=== PATIENT | male | born 2000 | race American Indian/Alaskan Native ===

== ENCOUNTER 2020-06-25 21:54 | Inpatient (IN) | payer OTHER ==
[2020-06-25] MEDS ORDERED: diazePAM 10 MG/2 ML SYRINGE IV ONE (22:19)
[2020-06-25] MEDS ORDERED: LACTATED RINGERS 1,000 ML IV ONE (22:19)
--- NOTE | 2020-06-25 22:24 | Emergency Department Report ---
ED General Adult HPI - General Chief complaint: Arrhythmia/Palpitations Stated complaint: POSSIBLE OVERDOSE PUI?: No Time Seen by Provider: 06/25/20 22:13 Source: patient, RN notes reviewed Mode of arrival: Ambulatory Limitations: Other (The patient is currently intoxicated) - History of Present Illness Initial comments: The patient was evaluated in the emergency department for symptoms described in the history of present illness. He/she was evaluated in the context of the global COVID-19 pandemic, which necessitated consideration that the patient might be at risk for infection with the virus that causes COVID-19. Instit utional protocols and algorithms that pertain to the evaluation of patients at risk for COVID-19 are in a state of rapid change based on information released by regulatory bodies including the CDC and federal and state organizations. These policies and algorithms were followed during the patient's care in the emergency department. Please note that these policies, procedures and recommendations changed on a rapid basis. This is a 20-year-old gentleman. He is not known to myself previously. He presents to the ER with a complaint of feeling paranoid, and painless heart racing, after recreational consumption of marijuana, and "ice." He was dropped off by his cousin. He is here by himself. He denies physical pain. He feels like he is paranoid. He is not homicidal or suicidal. He does not want to harm herself or harm other people. He does not have access to guns or firearms. He states his symptoms are constant. He states this is never happened to him before. He denies loss of taste and smell and fever. -: This evening Severity scale (0 -10): 0 Consistency: constant Improves with: none Worsens with: none - Related Data Allergies Allergy/AdvReac Type Severity Reaction Status Date / Time No Known Allergies Allergy Unverified 06/25/20 21:58 ED Review of Systems ROS: Stated complaint: POSSIBLE OVERDOSE Other details as noted in HPI Constitutional: denies: fever Eyes: denies: eye discharge ENT: denies: epistaxis Respiratory: denies: cough Cardiovascular: palpitations Gastrointestinal: denies: abdominal pain Genitourinary: denies: dysuria Musculoskeletal: denies: myalgia Neurological: weakness Psychiatric: anxiety. denies: homicidal thoughts, suicidal thoughts ED Past Medical Hx - Past Medical History Previous Medical History?: No - Surgical History Past Surgical History?: No - Social History Smoking Status: Current Every Day Smoker Substance Use Type: Marijuana ED Physical Exam - General Limitations: No Limitations General appearance: appears intoxicated, anxious - Head Head exam: Present: atraumatic, normocephalic - Eye Eye exam: Present: normal appearance, PERRL, EOMI - ENT ENT exam: Present: normal exam, normal orophraynx, mucous membranes moist, normal external ear exam - Neck Neck exam: Present: normal inspection, full ROM. Absent: tenderness, meningismus - Respiratory Respiratory exam: Present: normal lung sounds bilaterally. Absent: respiratory distress, wheezes, rales, rhonchi, stridor - Cardiovascular Cardiovascular Exam: Present: normal rhythm, tachycardia, normal heart sounds. Absent: bradycardia, irregular rhythm, systolic murmur, diastolic murmur, rubs, gallop - GI/Abdominal GI/Abdominal exam: Present: soft. Absent: distended, tenderness, guarding, rebound, rigid, pulsatile mass - Rectal Rectal exam: Present: deferred - Extremities Exam Extremities exam: Present: normal inspection, full ROM, other (2+ pulses noted in the bilateral upper and lower extremities. There is no palpable cord. negative Homans sign. Muscular compartments are soft. The pelvis is stable.). Absent: pedal edema, calf tenderness - Back Exam Back exam: Present: normal inspection, full ROM. Absent: tenderness, CVA tenderness (R), CVA tenderness (L), paraspinal tenderness, vertebral tenderness - Neurological Exam Neurological exam: Present: alert, normal gait, other (No facial droop. Tongue midline. Extraocular movements intact bilaterally. Facial sensation intact to light touch in V1, V2, V3 distribution bilaterally. 5 and a 5 strength in 4 extremities. Sensation intact to light touch in 4 extremities.). Absent: motor sensory deficit - Psychiatric Psychiatric exam: Present: anxious. Absent: homicidal ideation, suicidal ideation - Skin Skin exam: Present: warm, dry, intact, normal color. Absent: rash ED Course Vital Signs 06/25/20 06/25/20 06/25/20 21:58 22:03 23:12 Temperature 97.9 F 97.9 F Pulse Rate 142 H 142 H 117 H Respiratory 24 24 28 H Rate Blood Pressure 92/44 Blood Pressure 92/44 [Left] O2 Sat by Pulse 99 100 97 Oximetry O2 Sat by Pulse Oximetry [ Digit-Finger] 06/25/20 06/25/20 06/25/20 23:15 23:31 23:31 Temperature Pulse Rate 124 H 122 H Respiratory 23 15 Rate Blood Pressure 140/79 Blood Pressure [Left] O2 Sat by Pulse 98 100 Oximetry O2 Sat by Pulse 99 Oximetry [ Digit-Finger] 06/25/20 06/26/20 06/26/20 23:45 00:01 00:03 Temperature Pulse Rate 111 H 107 H 105 H Respiratory 17 17 18 Rate Blood Pressure 133/89 127/85 138/80 Blood Pressure [Left] O2 Sat by Pulse 97 97 97 Oximetry O2 Sat by Pulse Oximetry [ Digit-Finger] 06/26/20 00:15 Temperature Pulse Rate 102 H Respiratory 16 Rate Blood Pressure 138/80 Blood Pressure [Left] O2 Sat by Pulse 97 Oximetry O2 Sat by Pulse Oximetry [ Digit-Finger] - Reevaluation(s) Reevaluation #1: 06/25/20 22:22 Differential diagnosis, including but not limited to: Sympathomimetic intoxication, dehydration, electrolyte derangement, marijuana use, methamphet amine use Assessment and plan: 20-year-old gentleman, who is anxious, but cooperative, not homicidal, not suicidal, likely complaining of polysubstance drug-induced hallucinations. Patient placed on hold status. Laboratory studies, fluids, Valium ordered. We would like to see this patient clinically sober, and discharge once sober. At this point in time, he is cooperative, not violent, not homicidal or suicidal, we will not place him on 1013 requested mental health evaluation at this time. I have discussed the plan of care with the patient, who verbalized understanding, and who is thus far amenable to this plan of care. Reevaluation #2: 06/25/20 23:26 Patient feeling improved, although somewhat anxious. Heart rate 120 bpm. Blood pressure 120/65. Laboratory studies have demonstrated evidence of hemoconcentration, hyponatremia, hypochloremia, and hypokalemia. Suspect that the patient is volume depleted, and I suspect hypovolemic hyponatremia. We will replete electrolytes, patient updated on plan of care. He is more calm now, less anxious, and amenable to admission/hospitalization. Hospital physician, Dr. Loc Nichols to admit Reevaluation #3: 06/26/20 00:36 Tachycardia improving. Blood pressure improving. Patient resting comfortably in stretcher at this time, and in no acute distress. - Pulse Oximetry Interpretation Digit-Finger Initial Pulse Oximetry Readin O2 Sat by Pulse Oximetry: 99 Actions Taken: none ED Medical Decision Making - Lab Data Result diagrams: 06/25/20 22:45 06/25/20 22:45 Vital Signs 06/25/20 06/25/20 21:58 22:03 Temperature 97.9 F 97.9 F Pulse Rate 142 H 142 H Respiratory 24 24 Rate Blood Pressure 92/44 Blood Pressure 92/44 [Left] O2 Sat by Pulse 99 100 Oximetry Vital Signs 06/25/20 06/25/20 06/25/20 21:58 22:03 23:23 Temperature 97.9 F 97.9 F Pulse Rate 142 H 142 H Respiratory 24 24 Rate Blood Pressure 92/44 Blood Pressure 92/44 [Left] O2 Sat by Pulse 99 100 Oximetry O2 Sat by Pulse 99 Oximetry [ Digit-Finger] Lab Results 06/25/20 06/25/20 06/25/20 Range/Units 22:45 22:45 22:45 Hgb 17.1 H (11.8-15.2) gm/dl Hct 50.4 H (35.5-45.6) % Plt Count 348 (140-440) K/mm3 Sodium 119 L* (137-145) mmol/L Potassium 3.0 L (3.6-5.0) mmol/L Chloride 87.6 L (98-107) mmol/L Carbon Dioxide 22 (22-30) mmol/L Anion Gap 12 mmol/L BUN 10 (9-20) mg/dL Creatinine 1.1 (0.8-1.3) mg/dL Estimated GFR > 60 ml/min BUN/Creatinine Ratio 9 % Glucose 112 H (75-100) mg/dL Calcium 9.3 (8.4-10.2) mg/dL Magnesium 1.80 (1.7-2.3) mg/dL Total Creatine Kinase 136 (55-170) units/L Salicylates < 0.3 L (2.8-20.0) mg/dL Acetaminophen (10.0-30.0) ug/mL Plasma/Serum Alcohol (0-0.07) % 06/25/20 06/25/20 Range/Units 22:45 22:45 Hgb (11.8-15.2) gm/dl Hct (35.5-45.6) % Plt Count (140-440) K/mm3 Sodium (137-145) mmol/L Potassium (3.6-5.0) mmol/L Chloride (98-107) mmol/L Carbon Dioxide (22-30) mmol/L Anion Gap mmol/L BUN (9-20) mg/dL Creatinine (0.8-1.3) mg/dL Estimated GFR ml/min BUN/Creatinine Ratio % Glucose (75-100) mg/dL Calcium (8.4-10.2) mg/dL Magnesium (1.7-2.3) mg/dL Total Creatine Kinase (55-170) units/L Salicylates (2.8-20.0) mg/dL Acetaminophen 5.0 L (10.0-30.0) ug/mL Plasma/Serum Alcohol < 0.01 (0-0.07) % - EKG Data -: EKG Interpreted by Md EKG shows normal: sinus rhythm Rate: tachycardia - EKG Data When compared to previous EKG there are: previous EKG unavailable 06/25/20 22:23 Time of interpretation, 10: 03 PM Sinus rhythm, tachycardia, 130 bpm. Normal axis, QTC 444 ms. High left ventricular voltage. Abnormal EKG. Not a STEMI. Critical care attestation.: If time is entered above; I have spent that time in minutes in the direct care of this critically ill patient, excluding procedure time. ED Disposition Clinical Impression: Marijuana use, Methamphetamine use, Paranoia, Hypokalemia, Hyponatremia Disposition: DC-09 OP ADMIT IP TO THIS HOSP Is pt being admited?: Yes Does the pt Need Aspirin: No Condition: Good
[2020-06-25] MEDS ORDERED: diphenhydrAMINE 50 MG/ML VIAL IV ONE (23:02)
[2020-06-25] MEDS ORDERED: HALOPERIDOL LACTATE 5 MG/1 ML INJ IV STA (23:02)
[2020-06-25 23:09] LABS: Hematocrit 50.4 % (35.5-45.6); Hemoglobin 17.1 gm/dl (11.8-15.2)
[2020-06-25 23:18] LABS: BUN/Creatinine Ratio 9; Blood Urea Nitrogen 10 mg/dL (9-20); Calcium 9.3 mg/dL (8.4-10.2); Hemolysis Index 10
[2020-06-25] MEDS ORDERED: POTASSIUM CHLORIDE ER 20 MEQ TAB PO ONE (23:22)
[2020-06-25] MEDS ORDERED: SODIUM CHLORIDE 0.9% 500 ML 500 ML ONE (23:40)
[2020-06-25] MEDS: POTASSIUM CHLORIDE 10 MEQ 10 MEQ/100 ML BAG IV SCH (23:53)
[2020-06-26] MEDS ORDERED: ACETAMINOPHEN 325 MG TAB PO PRN (00:44)
[2020-06-26] MEDS ORDERED: ONDANSETRON 4 MG/2 ML INJ IV PRN (00:44)
[2020-06-26 00:53] LABS: Bilirubin,Urine NEG (Negative); Blood,Urine NEG (Negative); Color,Urine Straw (Yellow); Protein,Urine <15 mg/dL mg/dL (Negative); Urobilinogen,Urine < 2.0 mg/dL (<2.0); WBC,Urine < 1.0 /HPF (0.0-6.0)
[2020-06-26 01:04] LABS: Benzodiazepines Screen,Urine Negative; Cannabinoid Screen,Urine Negative; Cocaine Screen,Urine Negative; Methadone Screen,Urine Negative; Opiate Screen,Urine Negative
[2020-06-26 01:16] LABS: Amphetamine Screen,Urine Positive
[2020-06-26 01:28] LABS: BUN/Creatinine Ratio 10; Blood Urea Nitrogen 9 mg/dL (9-20); Calcium 8.6 mg/dL (8.4-10.2); Hemolysis Index 10
[2020-06-26] MEDS: POTASSIUM CHLORIDE 10 MEQ 10 MEQ/100 ML BAG IV SCH (01:29)
[2020-06-26] MEDS: LORazepam 2 MG/ML VIAL IV PRN ×2 (02:39→16:49)
[2020-06-26] MEDS: SODIUM CHLORIDE 0.9% 1000 ML 1,000 ML IV SCH ×2 (02:57→16:49)
--- NOTE | 2020-06-26 04:37 | History and Physical Report ---
History of Present Illness Date of examination: 06/25/20 Date of admission: 06/25/20 23:31 Chief complaint: FEELING OF PARANOIA AND PALPITATION History of present illness: History of presenting illness, patient is a 20-year-old male who presented to the emergency room with history of feeling of paranoia and palpitation after using recreational drugs like marijuana and amphetamine. Patient denied history of suicidal or homicidal intentions and said that he has never had this type of symptoms before, there was no history of fever or chills, no history of chest p ain, no history of nausea or vomiting or shortness of breath Past History Past Surgical History: No surgical history Social history: smoking, other (USE OF MARIJUANA AND AMPHETAMIN) Family history: no significant family history Medications and Allergies Allergies Allergy/AdvReac Type Severity Reaction Status Date / Time No Known Allergies Allergy Unverified 06/25/20 21:58 Active Meds: Active Medications Acetaminophen (Acetaminophen 325 Mg Tab) 650 mg PO Q4H PRN PRN Reason: Fever >101 Sodium Chloride (Nacl 0.9% 1000 Ml) 1,000 mls @ 125 mls/hr IV DIRECT BRANDI Last Admin: 06/26/20 02:57 Dose: 125 mls/hr Documented by: Lorazepam (Lorazepam 2 Mg/Ml Vial) 1 mg IV Q4H PRN PRN Reason: Anxiety Last Admin: 06/26/20 02:39 Dose: 1 mg Documented by: Ondansetron HCl (Ondansetron 4 Mg/2 Ml Inj) 4 mg IV Q8H PRN PRN Reason: Nausea And Vomiting Review of Systems Constitutional: no fever, no chills, no sweats, no night sweats, no weakness Eyes: bilateral: other (NO BILATERAL EYE SYMPTOMS) Ears, nose, mouth and throat: no ear pain Cardiovascular: palpitations, no chest pain, no orthopnea, no rapid/irregular heart beat, no edema, no syncope, no lightheadedness, no shortness of breath Respiratory: no cough, no hemoptysis, no shortness of breath, no congestion Gastrointestinal: no abdominal pain, no nausea, no vomiting, no diarrhea, no constipation Genitourinary Male: no hematuria, no flank pain, no discharge Rectal: no pain Musculoskeletal: no neck stiffness, no neck pain Integumentary: no rash, no pruritis, no redness Neurological: no weakness, no syncope Psychiatric: no anxiety, no suicidal ideation, no depression, no confusion, no sadness/tearfullness Endocrine: no polydipsia, no polyuria, no nocturia Hematologic/Lymphatic: no easy bruising Exam - Constitutional Vitals: Temp Pulse Resp BP Pulse Ox 97.1 F L 88 16 137/87 99 06/26/20 02:34 06/26/20 02:34 06/26/20 02:37 06/26/20 02:34 06/26/20 03:00 General appearance: Present: mild distress - EENT Eyes: Present: PERRL, EOM intact ENT: hearing intact, clear oral mucosa - Neck Neck: Present: supple, normal ROM - Respiratory Respiratory effort: normal - Cardiovascular Rhythm: regular Heart Sounds: Present: S1 & S2. Absent: gallop, systolic murmur, diastolic mu rmur, click - Extremities Extremities: no ischemia, No edema Peripheral Pulses: within normal limits - Abdominal General gastrointestinal: Present: soft, non-tender, non-distended. Absent: tender, distended, rigid, hepatomegaly, splenomegaly, mass Male genitourinary: Present: deferred - Rectal Rectal Exam: deferred - Integumentary Integumentary: Present: clear, warm, dry. Absent: erythema, jaundice - Musculoskeletal Musculoskeletal: strength equal bilaterally HEART Score - HEART Score Risk factors: No known risk factors Troponin: < normal limit - Critical Actions Critical Actions: 0-3 pts:0.9-1.7%risk of adverse cardiac event.Candidate for discharge Results - Labs CBC & Chem 7: 06/25/20 22:45 06/26/20 00:55 Labs: Laboratory Last Values Hgb 17.1 gm/dl (11.8-15.2) H 06/25/20 22:45 Hct 50.4 % (35.5-45.6) H 06/25/20 22:45 Plt Count 348 K/mm3 (140-440) 06/25/20 22:45 Sodium 121 mmol/L (137-145) L 06/26/20 00:55 Potassium 3.9 mmol/L (3.6-5.0) D 06/26/20 00:55 Chloride 89.6 mmol/L (98-107) L 06/26/20 00:55 Carbon Dioxide 25 mmol/L (22-30) 06/26/20 00:55 Anion Gap 10 mmol/L 06/26/20 00:55 BUN 9 mg/dL (9-20) 06/26/20 00:55 Creatinine 0.9 mg/dL (0.8-1.3) 06/26/20 00:55 Estimated GFR > 60 ml/min 06/26/20 00:55 BUN/Creatinine Ratio 10 % 06/26/20 00:55 Glucose 93 mg/dL (75-100) 06/26/20 00:55 Calcium 8.6 mg/dL (8.4-10.2) 06/26/20 00:55 Magnesium 1.80 mg/dL (1.7-2.3) 06/25/20 22:45 Total Creatine Kinase 136 units/L (55-170) 06/25/20 22:45 TSH 0.880 mlU/mL (0.270-4.200) 06/25/20 22:45 Urine Color Straw (Yellow) 06/25/20 23:22 Urine Turbidity Clear (Clear) 06/25/20 23:22 Urine pH 7.0 (5.0-7.0) 06/25/20 23:22 Ur Specific [place] 1.002 (1.003-1.030) L 06/25/20 23:22 Urine Protein <15 mg/dl mg/dL (Negative) 06/25/20 23:22 Urine Glucose (UA) Neg mg/dL (Negative) 06/25/20 23:22 Urine Ketones Neg mg/dL (Negative) 06/25/20 23:22 Urine Blood Neg (Negative) 06/25/20 23:22 Urine Nitrite Neg (Negative) 06/25/20 23:22 Urine Bilirubin Neg (Negative) 06/25/20 23:22 Urine Urobilinogen < 2.0 mg/dL (<2.0) 06/25/20 23:22 Ur Leukocyte Esterase Neg (Negative) 06/25/20 23:22 Urine WBC (Auto) < 1.0 /HPF (0.0-6.0) 06/25/20 23:22 Urine RBC (Auto) 0.0 /HPF (0.0-6.0) 06/25/20 23:22 Salicylates < 0.3 mg/dL (2.8-20.0) L 06/25/20 22:45 Urine Opiates Screen Negative 06/25/20 23:22 Urine Methadone Screen Negative 06/25/20 23:22 Acetaminophen 5.0 ug/mL (10.0-30.0) L 06/25/20 22:45 Ur Barbiturates Screen Negative 06/25/20 23:22 Ur Phencyclidine Scrn Negative 06/25/20 23:22 Ur Amphetamines Screen Positive 06/25/20 23:22 U Benzodiazepines Scrn Negative 06/25/20 23:22 Urine Cocaine Screen Negative 06/25/20 23:22 U Marijuana (THC) Screen Negative 06/25/20 23:22 Drugs of Abuse Note Disclamer 06/25/20 23:22 Plasma/Serum Alcohol < 0.01 % (0-0.07) 06/25/20 22:45 Head/IV: Voiding Method Urinal Assessment and Plan - Patient Problems (1) Hypokalemia Current Visit: Yes Status: Acute Plan to address problem: 1. KCL REPLACEMENT 2. BMP LEVEL FOR MONITORING (2) Hyponatremia Current Visit: Yes Status: Acute Plan to address problem: 1. I.V NORMAL SALINE 2. BMP LEVEL (3) Marijuana use Current Visit: Yes Status: Acute Plan to address problem: 1. I.V ATIVAN 2. COUNSELING FOR DRUG ABUSE (4) Methamphetamine use Current Visit: Yes Status: Acute Plan to address problem: 1. I.V ATIVAN PRN AGITATION 2. DRUG ABUSE COUNSELING (5) Paranoia Current Visit: Yes Status: Acute Plan to address problem: 1. MENTAL HEALTH CONSULT
--- NOTE | 2020-06-26 09:41 | Consultation ---
History of Present Illness - Reason for Consult Consult date: 06/26/20 Reason for consult: E Requesting physician: ALIREZA CROOKS - Chief Complaint Chief complaint: FEELING OF PARANOIA AND PALPITATION - History of Present Psychiatric Illness Per Hospitalist: This is a 20-year-old gentleman. He is not known to myself previously. He presents to the ER with a complaint of feeling paranoid, and painless heart racing, after recreational consumption of marijuana, and "ice." He was dropped off by his cousin. He is here by himself. He denies physical pain. He feels like he is paranoid. He is not homicidal or suicidal. He does not want to harm herself or harm other people. He does not have access to guns or firearms. He states his symptoms are constant. He states this is never happened to him before. PSYCH HPI Patient is a 20-year-old, currently unemployed, single male who currently resides with his father with no significant past psychiatric history no medical history who presented to the ED with chief complaint of paranoia and expressing symptoms after taking ice and smoking marijuana. It was noted patient was referred by his cousin, patient states he was chilling and agonal with some of his colleagues, where he was offered a cookie that was laced with ice and things went wrong from there. Today patient is alert oriented, patient describes a good and stable mood, denies being depressed or excessively nervous. Patient eats and sleeps well. Patient denies panic attacks, recurrent nightmares or flashbacks. Patient denies symptoms suggestive of OCD or PTSD. Patient denies hallucinations, paranoia, thought interference and no features suggestive of hypomania or juan. Patiently completely denies suicidal or homicidal thoughts. PAST PSYCHIATRIC HISTORY Diagnoses: none reported Suicide attempts or Self-harm behavior: none reported Prior psychiatric hospitalizations: none reported Substance Abuse history: Ice Previous psychiatric medications tried: none reported Outpatient treatment: none reported PAST MEDICAL HISTORY: none reported Family Psychiatric History: None reported or documented SOCIAL HISTORY Marital Status: Single Living Arrangements: with father Employment Status: employment Access to guns/weapons: none reported Education: 10th grade History of Abuse: none reported Legal History: none reported REVIEW OF SYSTEMS Constitutional: Negative for weight loss ENT: Negative for stridor Respiratory: Negative for cough or hemoptysis All other systems reviewed and are negative MENTAL STATUS EXAMINATION General Appearance and Behavior: Age appropriate, good hygiene, wearing appropriate clothes, good eye contact, cooperative polite with questioning. Cooperation: Participating/engaged Psychomotor Behavior: unremarkable and within normal limits Mood: Good Affect and affective range: congruent with mood Thought Process: Fluent/Logical, Thought Content: Within reality, Speech: Normal volume, Regular rate and rhythm, Intellectual Functioning: Average Suicidal Ideation: Denies SI Homicidal Ideation: Denies HI Impulse Control: Unimpaired Insight and Judgment: Normal insight and judgment, Memory: Normal, Attention: Normal, Orientation: Alert, oriented. Assessment and Plan - Psychiatric problem (1) Illicit drug use Current Visit: Yes Status: Acute Treatment Plan Outpt drug rehab service MEDICATIONS: Risks, benefits and alternatives of medications discussed with the patient, questions answered and consent obtained from patient. PSYCHOTHERAPY: Supportive psychotherapy provided MEDICAL: Per primary team DELIRIUM PRECAUTIONS: Please re-orient patient frequently, keep lights on during the day, and minimize benzodiazepines and opiates as these medications could worsen patient's confusion. 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 Case discussed with Dr. Hood who agrees with current disposition LEGAL STATUS: Voluntary FOLLOW-UP: Will sign off Thank you for the consult. Please contact with any questions and/or concerns. Medications and Allergies Allergies Allergy/AdvReac Type Severity Reaction Status Date / Time No Known Allergies Allergy Unverified 06/25/20 21:58 Active Meds: Active Medications Acetaminophen (Acetaminophen 325 Mg Tab) 650 mg PO Q4H PRN PRN Reason: Fever >101 Sodium Chloride (Nacl 0.9% 1000 Ml) 1,000 mls @ 125 mls/hr IV DIRECT BRANDI Last Admin: 06/26/20 02:57 Dose: 125 mls/hr Documented by: Lorazepam (Lorazepam 2 Mg/Ml Vial) 1 mg IV Q4H PRN PRN Reason: Anxiety Last Admin: 06/26/20 02:39 Dose: 1 mg Documented by: Ondansetron HCl (Ondansetron 4 Mg/2 Ml Inj) 4 mg IV Q8H PRN PRN Reason: Nausea And Vomiting Mental Status Exam - Vital signs Last Vital Signs Temp 97.5 F L 06/26/20 07:11 Pulse 88 06/26/20 07:11 Resp 18 06/26/20 07:11 BP 126/70 06/26/20 07:11 Pulse Ox 99 06/26/20 07:11 Results Result Diagrams: 06/25/20 22:45 06/26/20 00:55 Abnormal lab results 06/25/20 06/25/20 06/25/20 Range/Units 22:45 22:45 22:45 Hgb 17.1 H (11.8-15.2) gm/dl Hct 50.4 H (35.5-45.6) % Sodium 119 L* (137-145) mmol/L Potassium 3.0 L (3.6-5.0) mmol/L Chloride 87.6 L (98-107) mmol/L Glucose 112 H (75-100) mg/dL Ur Specific [place] (1.003-1.030) Salicylates < 0.3 L (2.8-20.0) mg/dL Acetaminophen (10.0-30.0) ug/mL 06/25/20 06/25/20 06/26/20 Range/Units 22:45 23:22 00:55 Hgb (11.8-15.2) gm/dl Hct (35.5-45.6) % Sodium 121 L (137-145) mmol/L Potassium (3.6-5.0) mmol/L Chloride 89.6 L (98-107) mmol/L Glucose (75-100) mg/dL Ur Specific [place] 1.002 L (1.003-1.030) Salicylates (2.8-20.0) mg/dL Acetaminophen 5.0 L (10.0-30.0) ug/mL All other labs normal.
--- NOTE | 2020-06-26 10:27 | Progress Note ---
Assessment and Plan Assessment and plan: --Severe hyponatremia; Patient sodium 119, mild improvement Continue current management Nephrology evaluation if needed --Hypokalemia; Resolved, closely monitor electrolytes --History of polysubstance abuse; Marijuana, methamphetamine, tobacco use Counseling advised to quit recreational drug use --Ongoing tobacco use; Smoking cessation, nicotine patch as needed --History of paranoid behavior; Psych following, no indication for inpatient psych treatment --DVT prophylaxis : Lovenox Closely monitor the patient and adjust the management as needed History Interval history: I have seen and examined the patient at the bedside this afternoon Patient's chart and medications reviewed Patient was sleeping easily awakens No new complaints Vital signs noted Hospitalist Physical - Constitutional Vitals: Temp Pulse Resp BP Pulse Ox 97.5 F L 88 18 126/70 99 06/26/20 07:11 06/26/20 07:11 06/26/20 07:11 06/26/20 07:11 06/26/20 07:11 General appearance: Present: mild distress, well-nourished - EENT Eyes: Present: PERRL, EOM intact - Neck Neck: Present: supple, normal ROM - Respiratory Respiratory effort: normal Respiratory: bilateral: diminished, negative: rales, rhonchi, wheezing - Cardiovascular Rhythm: regular Heart Sounds: Present: S1 & S2 - Extremities Extremities: no ischemia, No edema - Abdominal General gastrointestinal: soft, non-tender, non-distended, normal bowel sounds - Integumentary Integumentary: Present: clear, warm - Psychiatric Psychiatric: appropriate mood/affect, cooperative - Neurologic Neurologic: CNII-XII intact, moves all extremities HEART Score - HEART Score Risk factors: No known risk factors Troponin: < normal limit - Critical Actions Critical Actions: 0-3 pts:0.9-1.7%risk of adverse cardiac event.Candidate for discharge Results - Labs CBC & Chem 7: 06/25/20 22:45 06/26/20 00:55 Labs: Laboratory Last Values Hgb 17.1 gm/dl (11.8-15.2) H 06/25/20 22:45 Hct 50.4 % (35.5-45.6) H 06/25/20 22:45 Plt Count 348 K/mm3 (140-440) 06/25/20 22:45 Sodium 121 mmol/L (137-145) L 06/26/20 00:55 Potassium 3.9 mmol/L (3.6-5.0) D 06/26/20 00:55 Chloride 89.6 mmol/L (98-107) L 06/26/20 00:55 Carbon Dioxide 25 mmol/L (22-30) 06/26/20 00:55 Anion Gap 10 mmol/L 06/26/20 00:55 BUN 9 mg/dL (9-20) 06/26/20 00:55 Creatinine 0.9 mg/dL (0.8-1.3) 06/26/20 00:55 Estimated GFR > 60 ml/min 06/26/20 00:55 BUN/Creatinine Ratio 10 % 06/26/20 00:55 Glucose 93 mg/dL (75-100) 06/26/20 00:55 Calcium 8.6 mg/dL (8.4-10.2) 06/26/20 00:55 Magnesium 1.80 mg/dL (1.7-2.3) 06/25/20 22:45 Total Creatine Kinase 136 units/L (55-170) 06/25/20 22:45 TSH 0.880 mlU/mL (0.270-4.200) 06/25/20 22:45 Urine Color Straw (Yellow) 06/25/20 23:22 Urine Turbidity Clear (Clear) 06/25/20 23:22 Urine pH 7.0 (5.0-7.0) 06/25/20 23:22 Ur Specific [place] 1.002 (1.003-1.030) L 06/25/20 23:22 Urine Protein <15 mg/dl mg/dL (Negative) 06/25/20 23:22 Urine Glucose (UA) Neg mg/dL (Negative) 06/25/20 23:22 Urine Ketones Neg mg/dL (Negative) 06/25/20 23:22 Urine Blood Neg (Negative) 06/25/20 23:22 Urine Nitrite Neg (Negative) 06/25/20 23:22 Urine Bilirubin Neg (Negative) 06/25/20 23:22 Urine Urobilinogen < 2.0 mg/dL (<2.0) 06/25/20 23:22 Ur Leukocyte Esterase Neg (Negative) 06/25/20 23:22 Urine WBC (Auto) < 1.0 /HPF (0.0-6.0) 06/25/20 23:22 Urine RBC (Auto) 0.0 /HPF (0.0-6.0) 06/25/20 23:22 Salicylates < 0.3 mg/dL (2.8-20.0) L 06/25/20 22:45 Urine Opiates Screen Negative 06/25/20 23:22 Urine Methadone Screen Negative 06/25/20 23:22 Acetaminophen 5.0 ug/mL (10.0-30.0) L 06/25/20 22:45 Ur Barbiturates Screen Negative 06/25/20 23:22 Ur Phencyclidine Scrn Negative 06/25/20 23:22 Ur Amphetamines Screen Positive 06/25/20 23:22 U Benzodiazepines Scrn Negative 06/25/20 23:22 Urine Cocaine Screen Negative 06/25/20 23:22 U Marijuana (THC) Screen Negative 06/25/20 23:22 Drugs of Abuse Note Disclamer 06/25/20 23:22 Plasma/Serum Alcohol < 0.01 % (0-0.07) 06/25/20 22:45 Head/IV: Voiding Method Urinal Active Medications - Current Medications Current Medications: Generic Name Dose Route Start Last Admin Trade Name Freq PRN Reason Stop Dose Admin Acetaminophen 650 mg 06/26/20 00:44 Acetaminophen 325 Mg Tab PO Q4H PRN Fever >101 Sodium Chloride 1,000 mls @ 125 mls/hr 06/26/20 00:45 06/26/20 02:57 Nacl 0.9% 1000 Ml IV 125 mls/hr DIRECT BRANDI Administration Lorazepam 1 mg 06/26/20 00:41 06/26/20 02:39 Lorazepam 2 Mg/Ml Vial IV 1 mg Q4H PRN Administration Anxiety Ondansetron HCl 4 mg 06/26/20 00:44 Ondansetron 4 Mg/2 Ml Inj IV Q8H PRN Nausea And Vomiting
[2020-06-27] MEDS: SODIUM CHLORIDE 0.9% 1000 ML 1,000 ML IV SCH (01:42)
[2020-06-27 05:25] LABS: Calcium 8.5 mg/dL (8.4-10.2); Hemolysis Index 13
[2020-06-27] MEDS: LORazepam 2 MG/ML VIAL IV PRN (05:28)
[2020-06-27 05:34] LABS: BUN/Creatinine Ratio 1; Blood Urea Nitrogen < 1 mg/dL (9-20)
--- NOTE | 2020-06-27 10:49 | Progress Note ---
Assessment and Plan Assessment and plan: --Severe hyponatremia; Patient sodium 119, mild improvement Continue current management Nephrology evaluation if needed --Hypokalemia; Resolved, closely monitor electrolytes --History of polysubstance abuse; Marijuana, methamphetamine, tobacco use Counseling advised to quit recreational drug use --Ongoing tobacco use; Smoking cessation, nicotine patch as needed --History of paranoid behavior; Psych following, no indication for inpatient psych treatment --DVT prophylaxis : Lovenox Closely monitor the patient and adjust the management as needed Hospitalist Physical - Constitutional Vitals: Temp Pulse Resp BP Pulse Ox 98.0 F 64 18 116/76 98 06/27/20 07:25 06/27/20 07:25 06/27/20 10:30 06/27/20 07:25 06/27/20 07:25 General appearance: Present: mild distress, well-nourished HEART Score - HEART Score Risk factors: No known risk factors Troponin: < normal limit - Critical Actions Critical Actions: 0-3 pts:0.9-1.7%risk of adverse cardiac event.Candidate for discharge Results - Labs CBC & Chem 7: 06/25/20 22:45 06/27/20 09:45 Labs: Laboratory Last Values Hgb 17.1 gm/dl (11.8-15.2) H 06/25/20 22:45 Hct 50.4 % (35.5-45.6) H 06/25/20 22:45 Plt Count 348 K/mm3 (140-440) 06/25/20 22:45 Sodium 136 mmol/L (137-145) L 06/27/20 09:45 Potassium 4.2 mmol/L (3.6-5.0) 06/27/20 04:32 Chloride 104.2 mmol/L (98-107) 06/27/20 04:32 Carbon Dioxide 24 mmol/L (22-30) 06/27/20 04:32 Anion Gap 11 mmol/L 06/27/20 04:32 BUN < 1 mg/dL (9-20) L 06/27/20 04:32 Creatinine 0.9 mg/dL (0.8-1.3) 06/27/20 04:32 Estimated GFR > 60 ml/min 06/27/20 04:32 BUN/Creatinine Ratio 1 % 06/27/20 04:32 Glucose 87 mg/dL (75-100) 06/27/20 04:32 Calcium 8.5 mg/dL (8.4-10.2) 06/27/20 04:32 Magnesium 1.80 mg/dL (1.7-2.3) 06/25/20 22:45 Total Creatine Kinase 136 units/L (55-170) 06/25/20 22:45 TSH 0.880 mlU/mL (0.270-4.200) 06/25/20 22:45 Urine Color Straw (Yellow) 06/25/20 23:22 Urine Turbidity Clear (Clear) 06/25/20 23:22 Urine pH 7.0 (5.0-7.0) 06/25/20 23:22 Ur Specific [place] 1.002 (1.003-1.030) L 06/25/20 23:22 Urine Protein <15 mg/dl mg/dL (Negative) 06/25/20 23:22 Urine Glucose (UA) Neg mg/dL (Negative) 06/25/20 23:22 Urine Ketones Neg mg/dL (Negative) 06/25/20 23:22 Urine Blood Neg (Negative) 06/25/20 23:22 Urine Nitrite Neg (Negative) 06/25/20 23:22 Urine Bilirubin Neg (Negative) 06/25/20 23: Urine Urobilinogen < 2.0 mg/dL (<2.0) 06/25/20 23:22 Ur Leukocyte Esterase Neg (Negative) 06/25/20 23:22 Urine WBC (Auto) < 1.0 /HPF (0.0-6.0) 06/25/20 23:22 Urine RBC (Auto) 0.0 /HPF (0.0-6.0) 06/25/20 23:22 Salicylates < 0.3 mg/dL (2.8-20.0) L 06/25/20 22:45 Urine Opiates Screen Negative 06/25/20 23:22 Urine Methadone Screen Negative 06/25/20 23:22 Acetaminophen 5.0 ug/mL (10.0-30.0) L 06/25/20 22:45 Ur Barbiturates Screen Negative 06/25/20 23:22 Ur Phencyclidine Scrn Negative 06/25/20 23:22 Ur Amphetamines Screen Positive 06/25/20 23:22 U Benzodiazepines Scrn Negative 06/25/20 23:22 Urine Cocaine Screen Negative 06/25/20 23:22 U Marijuana (THC) Screen Negative 06/25/20 23:22 Drugs of Abuse Note Disclamer 06/25/20 23:22 Plasma/Serum Alcohol < 0.01 % (0-0.07) 06/25/20 22:45 Head/IV: Voiding Method Urinal Active Medications - Current Medications Current Medications: Generic Name Dose Route Start Last Admin Trade Name Freq PRN Reason Stop Dose Admin Acetaminophen 650 mg 06/26/20 00:44 Acetaminophen 325 Mg Tab PO Q4H PRN Fever >101 Sodium Chloride 1,000 mls @ 125 mls/hr 06/26/20 00:45 06/27/20 01:42 Nacl 0.9% 1000 Ml IV 125 mls/hr DIRECT BRANDI Administration Lorazepam 1 mg 06/26/20 00:41 06/27/20 05:28 Lorazepam 2 Mg/Ml Vial IV 1 mg Q4H PRN Administration Anxiety Ondansetron HCl 4 mg 06/26/20 00:44 Ondansetron 4 Mg/2 Ml Inj IV Q8H PRN Nausea And Vomiting
[2020-06-27 12:08] VITALS: BP 110/61
--- NOTE | 2020-06-27 14:04 | Discharge Summary ---
Providers - Providers Date of Admission: 06/26/20 10:27 Date of discharge: 06/27/20 Attending physician: CHACHA PERES 06/26/20 04:54 Consult to Mental Health [CONS] Routine Reason For Exam: PARANOIA AND ILLICIT DRUG USE Primary care physician: PANEL LAMINATOR Hospitalization Reason for admission: Paranoid behavior/polysubstance abuse Condition: Good Hospital course: 20-year-old male patient with no significant past medical history not on any medications was admitted through emergency room with paranoid behavior and palpitations after consuming recreational drugs like marijuana and amphetamine and ice. He was dropped off in the hospital by his cousin. There is no history suggestive of chest pain or shortness of breath Patient gives history of paranoid behavior and palpitation Patient did not have any other symptoms Initial evaluation in the ED, patient was confused encephalopathic Urine drug screen positive for methamphetamine, has history of ongoing tobacco use Patient was symptomatically managed evaluated by psych, psych did not feel that patient needed 1013 As he was not suicidal or homicidal, did not recommend inpatient psych management Cleared for discharge advised to follow with [facility] for further evaluation management Strongly advised to quit recreational drug use ongoing tobacco use Patient is stable at discharge Disposition: DC-01 TO HOME OR SELFCARE Time spent for discharge: 35 min Core Measure Documentation - Palliative Care Palliative Care/ Comfort Measures: Not Applicable - Core Measures Any of the following diagnoses?: none Exam - Constitutional Vitals: Temp Pulse Resp BP Pulse Ox 97 F L 103 H 18 110/61 100 06/27/20 12:00 06/27/20 12:00 06/27/20 12:00 06/27/20 12:00 06/27/20 12:00 General appearance: Present: no acute distress, well-nourished - EENT Eyes: Present: PERRL, EOM intact - Neck Neck: Present: supple, normal ROM - Respiratory Respiratory effort: normal Respiratory: bilateral: diminished, negative: rales, rhonchi, wheezing - Cardiovascular Rhythm: regular Heart Sounds: Present: S1 & S2 - Extremities Extremities: no ischemia, No edema - Abdominal General gastrointestinal: Present: soft, non-tender, non-distended, normal bowel sounds - Integumentary Integumentary: Present: clear, warm - Musculoskeletal Musculoskeletal: strength equal bilaterally, generalized weakness - Psychiatric Psychiatric: appropriate mood/affect, cooperative - Neurologic Neurologic: CNII-XII intact, moves all extremities Plan Activity: no restrictions, advance as tolerated Diet: regular Additional Instructions: No prescriptions needed. advised to quit tobacco use. Advised to quit recreational drug use. If you have worsening symptoms contact MD or go to emergency room. Follow-up with your primary care physician in 1 to 2 weeks or as needed Follow up with: PRIMARY CARE, [Primary Care Provider] - 3-5 Days
--- NOTE | 2020-06-28 10:59 | Electrocardiograph Report ---
[facility] Test Date: 2020-06-25 Test Time: 22:00:17 Pat Name: RACHEL YUN Department: Room: B316 1 Gender: M Patroller: JOSEFINA : 2000 Requested By: JEREMIAS PEÑA Order Number: [id number] Reading MD: Milton Rildey Measurements Intervals [place] Rate: 130 P: 72 OK: 141 QRS: 33 QRSD: 89 T: 57 QT: 301 QTc: 444 Interpretive Statements Sinus tachycardia ST elev, probable normal early repol pattern No previous ECG available for comparison Electronically Signed On 06-28-2020 7:58:52 PDT by Milton Ridley
== END 2020-06-27 14:29 | disposition home or self-care (01) | DRG 641 ==
LOC: ED 21:54 → 3B-SURG 23:31 → OBSVTOIN 06-26 10:27
PROVIDERS: ADMIT Internal Medicine; ATTEND Internal Medicine
DX: E87.1 Hypo-osmolality and hyponatremia (principal); E87.6 Hypokalemia; F12.90 Cannabis use, unspecified, uncomplicated; F17.200 Nicotine dependence, unspecified, uncomplicated; F15.90 Other stimulant use, unspecified, uncomplicated; Z71.51 Drug abuse counseling and surveillance of drug abuser; Z71.6 Tobacco abuse counseling
CPT/HCPCS: 36415; 80048; 80307; 80320; 81001; 82550; 83735; 84295; 84443; 85014; 85018; 85049; 93005; 96361; 96365; 96375; G0378; G0480; J1200; J1630; J2060; J3360; J3480; J7030; J7040; J7120

== ENCOUNTER 2020-06-28 19:48 | Emergency (ER) | payer SELFPAY | END 2020-06-28 22:46 | disposition left against medical advice (07) | LOC: ED 19:48 | DX: Z53.21 Procedure and treatment not carried out due to patient leaving prior to being seen by health care provider (principal) ==

== ENCOUNTER 2020-06-29 07:24 | Emergency (ER) | payer SELFPAY ==
--- NOTE | 2020-06-29 08:02 | Event Note ---
ED Screening Note Date of service: 06/29/20 Time: 08:01 ED Screening Note: Patient complains of cramping in extremities after taking an marijuana edible Patient admitted 06/26/2020 with hyponatremia This initial assessment/diagnostic orders/clinical plan/treatment(s) is/are subject to change based on patients health status, clinical progression and re- assessment by fellow clinical providers in the ED. Further treatment and workup at subsequent clinical providers discretion. Patient/guardian urged not to elope from the ED as their condition may be serious if not clinically assessed and managed. Initial orders include: Labs
[2020-06-29 08:04] VITALS: BP 126/54
[2020-06-29 08:39] LABS: Color,Urine Yellow (Yellow)
[2020-06-29 08:40] LABS: Bilirubin,Urine Negative (Negative); Blood,Urine Negative (Negative); Protein,Urine <15 mg/dL mg/dL (Negative)
[2020-06-29 08:41] LABS: Mucus,Urine 3+ /HPF
[2020-06-29 08:42] LABS: Hemoglobin 16.6 gm/dl (11.8-15.2); Red Blood Count 5.09 M/mm3 (3.65-5.03)
[2020-06-29 08:43] LABS: Basophils % (Auto) 0.4 % (0.0-1.8); Eosinophils # (Auto) 0.3 K/mm3 (0.0-0.4); Eosinophils % (Auto) 3.8 % (0.0-4.3); Hematocrit 48.2 % (35.5-45.6); Lymphocytes # (Auto) 2.8 K/mm3 (1.2-5.4); Mean Corpuscular HGB Conc 35 % (32-34); Mean Corpuscular Volume 95 fl (84-94); Monocytes # (Auto) 0.6 K/mm3 (0.0-0.8); Monocytes % (Auto) 9.3 % (0.0-7.3); Platelet Count 273 K/mm3 (140-440); Red Cell Distribution Width 12.3 % (13.2-15.2)
[2020-06-29 11:00] LABS: Cocaine Screen,Urine Negative; Methadone Screen,Urine Negative; Opiate Screen,Urine Negative
[2020-06-29 12:09] LABS: Alanine Aminotransferase 17 units/L (7-56); Albumin 4.2 g/dL (3.9-5); Blood Urea Nitrogen 5 mg/dL (9-20); Calcium 9.4 mg/dL (8.4-10.2); Hemolysis Index 15
[2020-06-29 12:20] LABS: BUN/Creatinine Ratio 7
[2020-06-29 12:20] LABS: Amphetamine Screen,Urine PRESUMPTIVE POSITIVE; Benzodiazepines Screen,Urine PRESUMPTIVE POSITIVE; Cannabinoid Screen,Urine PRESUMPTIVE POSITIVE
== END 2020-06-29 09:00 | disposition left against medical advice (07) ==
LOC: ED 07:24
DX: M79.643 Pain in unspecified hand (principal); Z53.21 Procedure and treatment not carried out due to patient leaving prior to being seen by health care provider
CPT/HCPCS: 36415; 80053; 80307; 81001; 82550; 83735; 85025

== ENCOUNTER 2020-07-14 02:03 | Emergency (ER) | payer SELFPAY ==
[2020-07-14 04:19] VITALS: BP 144/87
--- NOTE | 2020-07-14 04:21 | Emergency Department Report ---
ED General Adult HPI - General Stated complaint: FINGER CRAMPS Time Seen by Provider: 07/14/20 04:12 - History of Present Illness Initial comments: 28-year-old male smoker department complaining reemerging cramping to these hands bilaterally and the sensation of difficulties catching her breath which appears to be exacerbating since of anxiety. He was initially seen in emergency department about a week and 1/2 to 2 weeks ago where he was admitted due to his potassium levels but was unable to be in the hospital and decided to leave AGAINST MEDICAL ADVICE prior to obtaining the total treatment. He later follow-up at [facility] and was assessed to have anxiety and was treated with Ativan. States he is beginning to have some of the same crampy symptoms worse initial leg's. His evaluation and admission. Reports no nausea vomiting repor ts no fever, chills, sweats, no hemoptysis no hematemesis hematochezia. -: Gradual Quality: dull Consistency: constant Improves with: none Worsens with: none Associated Symptoms: denies other symptoms Treatments Prior to Arrival: none - Related Data Previous Rx's Medication Instructions Recorded Last Taken Type ALPRAZolam [Xanax TAB] 0.25 mg PO BID PRN #7 tab 07/14/20 Unknown Rx Allergies Allergy/AdvReac Type Severity Reaction Status Date / Time No Known Allergies Allergy Unverified 06/25/20 21:58 ED Review of Systems ROS: Stated complaint: FINGER CRAMPS Other details as noted in HPI ED Past Medical Hx - Past Medical History Hx Hypertension: No Hx Heart Attack/AMI: No Hx Congestive Heart Failure: No Hx Diabetes: No Hx Deep Vein Thrombosis: No Hx Pulmonary Embolism: No Hx Liver Disease: No Hx Renal Disease: No Hx Sickle Cell Disease: No Hx Arthritis: No Hx Seizures: No Hx Kidney Stones: No Hx Asthma: No Hx COPD: No Hx Tuberculosis: No Hx Dementia: No Hx HIV: No - Surgical History Hx Coronary Stent: No Hx Pacemaker: No Hx Internal Defibrillator: No - Social History Smoking Status: Current Every Day Smoker Substance Use Type: Marijuana, Methamphetamines - Medications Home Medications: Home Medications Medication Instructions Recorded Confirmed Last Taken Type ALPRAZolam [Xanax TAB] 0.25 mg PO BID PRN #7 tab 07/14/20 Unknown Rx ED Physical Exam - General General appearance: alert, in no apparent distress, anxious - Head Head exam: Present: atraumatic, normocephalic - Eye Eye exam: Present: normal appearance - ENT ENT exam: Present: mucous membranes moist - Neck Neck exam: Present: normal inspection - Respiratory Respiratory exam: Present: normal lung sounds bilaterally. Absent: respiratory distress - Cardiovascular Cardiovascular Exam: Present: regular rate, normal rhythm. Absent: systolic murmur, diastolic murmur, rubs, gallop - GI/Abdominal GI/Abdominal exam: Present: soft, normal bowel sounds - Rectal Rectal exam: Present: deferred - Extremities Exam Extremities exam: Present: normal inspection, full ROM, normal capillary refill. Absent: tenderness, pedal edema, joint swelling, calf tenderness - Back Exam Back exam: Present: normal inspection. Absent: CVA tenderness (R), CVA tenderness (L), paraspinal tenderness - Neurological Exam Neurological exam: Present: alert, oriented X3, CN II-XII intact, normal gait - Psychiatric Psychiatric exam: Present: normal affect, normal mood, anxious - Skin Skin exam: Present: warm, dry, intact, normal color. Absent: rash ED Course Vital Signs 07/14/20 04:13 Temperature 98.7 F Pulse Rate 111 H Respiratory 18 Rate Blood Pressure 144/87 O2 Sat by Pulse 97 Oximetry ED Medical Decision Making - Lab Data Result diagrams: 07/14/20 04:15 07/14/20 04:15 - Radiology Data Radiology results: report reviewed [facility] [place] [id number] XRay Report Signed Patient: RACHEL YUN MR#: [id number] : 2000 Acct:[id number] Age/Sex: 20 / M ADM Date: 07/14/20 Loc: ED Attending Dr: Ordering Physician: CAMRON MORRISON Date of Service: 07/14/20 Procedure(s): XR chest routine 2V Accession Number(s): [id number] cc: CAMRON MORRISON Fluoro Time In Minutes: CHEST PA AND LATERAL VIEWS INDICATION: sob. COMPARISON: None. FINDINGS: Support devices: None. Heart: Within normal limits. Lungs/Pleura: No acute pulmonary or pleural findings. IMPRESSION: 1. No acute findings. Signer Name: Juan Pablo Chen MD Signed: 07/14/2020 4:47 AM Workstation Name: [id number] Transcribed By: MARIN Dictated By: Juan Pablo Chen MD Electronically Authenticated By: Juan Pablo Chen MD Signed Date/Time: 07/14/20446 DD/ 5 TD/TT: - Medical Decision Making This patient presents with symptoms consistent with acute anxiety reaction/panic attack. Low suspicion for acute coronary process including ACS, pulmonary embol ism, thoracic aortic dissection. Denies any ingestions or any other medical complaints. No evidence of alcohol withdrawal symptoms. Presentation not consistent with overt toxic syndrome, ingestion given history and physical. Presentation not consistent with organic or medical emergency at this time. No acute indication for psychiatric consultation. Cautious return precautions discussed with full understanding Plan: Medication, psych follow-up PRN Critical care attestation.: If time is entered above; I have spent that time in minutes in the direct care of this critically ill patient, excluding procedure time. ED Disposition Clinical Impression: Hypokalemia, Anxiety Disposition: DC-01 TO HOME OR SELFCARE Is pt being admited?: No Does the pt Need Aspirin: No Condition: Stable Instructions: Hypokalemia, Potassium Content of Foods, Managing Anxiety, Adult Prescriptions: ALPRAZolam [Xanax TAB] 0.25 mg PO BID PRN #7 tab PRN Reason: Anxiety Referrals: [facility] [Provider Group] - 3-5 Days PRIMARY [facility] [Primary Care Provider] - 3-5 Days
[2020-07-14 04:30] LABS: Basophils % (Auto) 0.5 % (0.0-1.8); Eosinophils # (Auto) 0.1 K/mm3 (0.0-0.4); Eosinophils % (Auto) 0.8 % (0.0-4.3); Lymphocytes # (Auto) 1.7 K/mm3 (1.2-5.4); Lymphocytes % (Auto) 18.1 % (13.4-35.0); Mean Corpuscular HGB Conc 36 % (32-34); Mean Corpuscular Volume 93 fl (84-94); Monocytes # (Auto) 0.7 K/mm3 (0.0-0.8); Platelet Count 338 K/mm3 (140-440); Red Blood Count 5.18 M/mm3 (3.65-5.03); Red Cell Distribution Width 12.2 % (13.2-15.2)
[2020-07-14 04:44] LABS: Hematocrit 47.9 % (35.5-45.6); Hemoglobin 17.2 gm/dl (11.8-15.2)
[2020-07-14 04:49] LABS: BUN/Creatinine Ratio 15; Blood Urea Nitrogen 12 mg/dL (9-20); Calcium 9.6 mg/dL (8.4-10.2); Hemolysis Index 5
--- NOTE | 2020-07-14 04:51 | XRay Report ---
CHEST PA AND LATERAL VIEWS INDICATION: sob. COMPARISON: None. FINDINGS: Support devices: None. Heart: Within normal limits. Lungs/Pleura: No acute pulmonary or pleural findings. IMPRESSION: 1. No acute findings. Signer Name: Juan Pablo Chen MD Signed: 07/14/2020 4:47 AM Workstation Name: [id number]
== END 2020-07-14 05:47 | disposition home or self-care (01) ==
LOC: ED 02:03
DX: E87.6 Hypokalemia (principal); F41.9 Anxiety disorder, unspecified; F17.200 Nicotine dependence, unspecified, uncomplicated; F12.90 Cannabis use, unspecified, uncomplicated; F15.90 Other stimulant use, unspecified, uncomplicated; Z79.899 Other long term (current) drug therapy
CPT/HCPCS: 36415; 71046; 80048; 85025

== ENCOUNTER 2020-07-17 03:17 | Emergency (ER) | payer SELFPAY ==
[2020-07-17 04:13] VITALS: BP 128/67
== END 2020-07-17 05:00 | disposition left against medical advice (07) ==
LOC: ED 03:17
DX: R06.02 Shortness of breath (principal); Z53.21 Procedure and treatment not carried out due to patient leaving prior to being seen by health care provider

== ENCOUNTER 2020-07-21 01:57 | Emergency (ER) | payer SELFPAY ==
[2020-07-21 02:35] VITALS: BP 109/83
== END 2020-07-21 05:54 | disposition home or self-care (01) ==
LOC: ED 01:57
DX: R06.00 Dyspnea, unspecified (principal); Z53.21 Procedure and treatment not carried out due to patient leaving prior to being seen by health care provider

== ENCOUNTER 2020-10-13 22:29 | Emergency (ER) | payer SELFPAY | END 2020-10-13 23:30 | LOC: ED 22:29 | DX: M79.18 Myalgia, other site (principal); Z53.21 Procedure and treatment not carried out due to patient leaving prior to being seen by health care provider ==